=== PATIENT | male | born 1965 | race Caucasian/White ===

== ENCOUNTER 2023-04-13 19:12 | Emergency (ER) | payer OTHER, SELFPAY ==
[2023-04-13 19:22] VITALS: BP 157/89; PULSE 96; RESP 16; TEMP 36.9; O2SAT 95; BMI 24.4
[2023-04-13 19:56] LABS: Basophils Absolute Auto 0.02 K/uL (0.00-0.30); Basophils Percent Auto 0.3 % (0.0-3.0); Eosinophils Absolute Auto 0.01 K/uL (0.00-0.50); Eosinophils Percent Auto 0.2 % (0.0-7.0); Hemoglobin* 13.1 gm/dL (13.5-17.5); Immature Granulocytes Abs Auto 0.03 K/uL (0.00-0.30); Immature Granulocytes Pct Auto 0.5 %; Lymphocytes Absolute Auto 1.75 K/uL (0.90-2.90); Lymphocytes Percent Auto 27.3 % (20-44); Mean Corpuscular HGB Conc 34 gm/dL (32-36); Mean Corpuscular Hemoglobin 30 pg (26-34); Mean Corpuscular Volume 89 fL (80-100); Monocytes Percent Auto 21.9 % (0.0-11.0); Neutrophils Absolute Auto 3.19 K/uL (1.7-7.0); Neutrophils Percent Auto 49.8 % (42.0-72.0); Platelet Count* 384 K/uL (140-440); RDW Coefficient of Variation % 11.9 % (11.5-15.5); Red Blood Count 4.36 m/uL (4.30-5.90)
[2023-04-13 20:02] LABS: Lactate Sepsis w/Reflex* 0.9 mmol/L (0.5-1.9)
[2023-04-13 20:03] LABS: Slide Review Reflex No
[2023-04-13 20:12] LABS: Albumin* 3.8 g/dL (3.3-5.0); Chloride* 106 mmol/L (96-114)
[2023-04-13 20:13] LABS: Potassium* 3.7 mmol/L (3.6-5.1); Sodium* 138 mmol/L (135-149)
[2023-04-13 20:15] LABS: Creatinine* 0.9 mg/dL (0.5-1.5); Est. Creatinine Clearance* 91.25; Estimated Glomerular Filt Rate 98 ml/min
[2023-04-13 20:16] LABS: Alanine Aminotransferase* 23 U/L (4-50); Alkaline Phosphatase* 59 U/L (40-150); Anion Gap 5 mEq/L (7-15); Aspartate Amino Transferase* 25 U/L (12-35); Bilirubin Direct* 0.3 mg/dL (0.0-0.5); Bilirubin Total* 0.4 mg/dL (0.1-1.5); Blood Urea Nitrogen* 19 mg/dL (7-30); Calcium* 9.4 mg/dL (8.4-10.6); Carbon Dioxide* 27 mmol/L (20-32); Glucose* 112 mg/dL (60-115); Lipase* 63 U/L (23-300); Total Protein* 7.1 g/dL (6.0-8.3)
--- NOTE | 2023-04-13 20:16 | CT_ITS ---
Patient: CHAZ HAMILTON Facility:?[facility] Patient ID:?[id number] Site Patient ID:?[id number]. Site :?[id number] Study:?CT-Abdomen/Pelvis W/ 83CC ISOVUE 3 70-04/13/2023 8:47:29 PM Ordering Physician:BURAK Final Report: INDICATION: Right-sided abdominal pain. TECHNIQUE: CT abdomen and pelvis acquired with 83 mL Isovue 370 contrast. COMPARISON: None. FINDINGS: Lower chest: Mild bibasilar dependent atelectasis. No focal consolidation. Liver: No suspicious focal hepatic lesion. Gallbladder and bile ducts: Unremarkable. Pancreas: Unremarkable. Spleen: Unremarkable. Adrenal glands: Unremarkable. Kidneys: Kidneys enhance symmetrically, without hydronephrosis. Retroperitoneum: No lymphadenopathy. Bowel and mesentery: Bowel is not obstructed. No significant ascites, no pneumoperitoneum. Normal appendix. Bladder: Unremarkable for degree of distention. Reproductive organs: No significant prostatomegaly. Pelvic lymph nodes: No lymphadenopathy. Vessels: Few scattered vascular calcifications. Abdominal wall: No acute abdominal wall abnormality. Bones: Extensive multilevel degenerative changes of the spine. Bones are osteopenic. IMPRESSION: Normal appendix. No acute intra-abdominal abnormality identified. Please note that all CT scans at this facility use dose modulation, iterative reconstruction, and/or weight-based dosing when appropriate to reduce radiation dose to as low as reasonably achievable. Dictated by Jayme Lopez MD @ 04/13/2023 9:08:28 PM Signed by:?Jayme Lopez MD @04/13/2023 9:08:28 PM (Electronic Signature)
[2023-04-13 20:17] LABS: Ethanol* < 0.01 % (0.01-0.03)
[2023-04-13 20:19] LABS: C Reactive Protein* 2.1 mg/dL (0.5-1.0)
[2023-04-13] MEDS: 0.9 % SODIUM CHLORIDE 1000 ml 1,000 ML IV (20:27)
[2023-04-13 21:05] LABS: Appearance Urine Clear (Clear); Bilirubin Urine Negative (Negative); Blood Urine Negative (Negative); Color Urine Yellow (Yellow); Glucose Urine Negative (Negative); Ketones Urine Negative (Negative); Leukocyte Esterase Urine Negative (Negative); Nitrite Urine Negative (Negative); Protein Urine Negative (Negative); Specific Gravity Urine 1.015 (1.000-1.030); Urobilinogen Urine 0.2 (0.2-1.0)
[2023-04-13 21:18] LABS: RBC Urine 0-2 (0-2); WBC Urine 0-2 (0-5)
--- NOTE | 2023-04-13 22:34 | ED_ITS ---
HPI - General Adult General Chief complaint: Abdominal Pain Stated complaint: pain in abdomen/back Time Seen by Provider: 04/13/23 19:29 Source: patient and family Mode of arrival: ambulatory Limitations: no limitations History of Present Illness HPI narrative: Patient is a 57 year old male here with his daughter for evaluation of some abdominal pain which started yesterday. His daughter reports that she checked his temperature at home before he came in and it was 101, he did take Tylenol after that. He says he has had pain intermittently in the right upper quadrant radiating around to the back, kind of down the right lateral side of his abdomen as well. He has not had any nausea or vomiting, has had normal bowel movements denies constipation, diarrhea, black or bloody stools. He has not had any respi ratory symptoms. He has not had urinary symptoms. He denies a history of similar pain. Denies prior abdominal surgeries. He says the pain has come and gone since yesterday with no clear pattern, does not seem to be bothered by eating. Started a little bit before dinner yesterday, he had a burrito for dinner but that did not seem to make anything worse. Right now he does not have any significant pain. He does not smoke. Admits to sometimes heavy alcohol use, mostly on the weekends. He did drink all last week because he says he was on vacation. He denies a history of alcohol withdrawal or treatment, neither he nor his daughter considers alcohol problem. No other substance use. Related Data Home Medications Medication Instructions Recorded Confirmed amoxicillin 875 mg-potassium 1 tab PO Q12H 04/13/23 04/13/23 clavulanate 125 mg tablet prednisone 20 mg tablet 40 mg PO DAILY 04/13/23 04/13/23 Allergies Allergy/AdvReac Type Severity Reaction Status Date / Time No Known Drug Allergies Allergy Verified 04/13/23 20:51 Review of Systems Status of ROS: Reports: 10 or more systems reviewed and unremarkable except as noted in History and below Exam Narrative: Exam Narrative: Vital signs as noted above. In general, an alert, well-appearing patient. Head: Normocephalic, atraumatic. Eyes: Pupils are equal reactive. Extraocular movements are full. Conjunctivae are normal. ENT: Mucous membranes are moist. Throat is normal. Neck: Supple without lymphadenopathy. Heart: Regular rate and rhythm. No murmur or rub. Lungs: Clear bilaterally. No increased work of breathing, crackles or wheezes. Abdomen: Soft, nondistended. Bowel sounds are present. Intermittent tenderness in the right abdomen, not reproducible. Negative Lozoya's, no tenderness at McBurney's point. No rebound guarding or rigidity. No obvious rash. No CVA tenderness. Extremities: Well perfused. No edema. No calf tenderness. Pulses intact. Neurologic: Patient is alert and oriented to person and place. Speech is fluent. Face is symmetric. Moves all extremities equally. Affect: Normal. Skin: Warm and dry. Well perfused. Const: Vital Signs, click to edit/add: Vital Signs - 24 hr 04/13/23 19:22 Temperature 98.5 F Pulse Rate [Pulse Oximeter] 96 Respiratory Rate 16 Blood Pressure [Ri ght Upper Arm] 157/89 H Pulse Oximetry 95 Oxygen Delivery Me thod Room Air Documenting provider has reviewed patient's vital signs: yes Course Course ED Course: Labs were ordered, declined the need for anything for pain. I looked with the bedside ultrasound, did not see obvious gallstones, negative sonographic Lozoya's. Did not see hydronephrosis. Elected order CT scan given his age and reported fever at home although he is afebrile here. Labs are notable for normal white blood cell count, very minimal anemia with a hemoglobin of 13.1. Normal metabolic panel, normal lactate 0.9, normal LFTs, mildly elevated CRP at 2.1. Lipase was 63. Urinalysis was negative. Blood alcohol was less than 0.[address] scan by my review showed a normal appendix, no obvious gallstones, no inflammatory changes around the bowel. Read by Radiology as normal, normal gallbladder, normal appendix, no hydro nephrosis or kidney stone. At this time, etiology of his pain is unclear although with reassuring labs aside from a very minimally elevated CRP and a benign abdominal exam I doubt acute surgical cause. Did ask him to keep an eye out for rash as with this intermittent somewhat unusual pain early shingles would be a possibility. Ibuprofen or Tylenol as needed, asked him to abstain from alcohol until symptoms are improved. If not improving over the weekend, see primary care next week for recheck. Return at any time for acute worsening, severe uncontrolled pain, fever, vomiting or other worsening. Vital Signs Vital signs: Initial Vital Signs Temperature 98.5 F 04/13/23 19:22 Temperature Source Temporal Artery Scan 04/13/23 19:22 Pulse Rate 96 04/13/23 19:22 Respiratory Rate 16 04/13/23 19:22 Blood Pressure 157/89 H 04/13/23 19:22 Blood Pressure Mean 111 H 04/13/23 19:22 Blood Pressure Position Sitting 04/13/23 19:22 Pulse Oximetry 95 04/13/23 19:22 Oxygen Delivery Method Room Air 04/13/23 19:22 Vital Signs Temperature 98.5 F 04/13/23 19:22 Pulse Rate 96 04/13/23 19:22 Respiratory Rate 16 04/13/23 19:22 Blood Pressure 157/89 H 04/13/23 19:22 Pulse Oximetry 95 04/13/23 19:22 Oxygen Delivery Method Room Air 04/13/23 19:22 Temperature 98.5 F 04/13/23 19:22 Pulse Rate 96 04/13/23 19:22 Respiratory Rate 16 04/13/23 19:22 Blood Pressure 157/89 H 04/13/23 19:22 Pulse Oximetry 95 04/13/23 19:22 Oxygen Delivery Method Room Air 04/13/23 19:22 Medications Administered Medications: Discontinued Medications Generic Name Dose Route Start Last Admin Trade Name Freq PRN Reason Stop Dose Admin Sodium Chloride 1,000 mls @ 1,000 mls/hr 04/13/23 20:30 04/13/23 20:27 0.9 % Sodium Chloride 1000 Ml IV 04/13/23 21:29 1,000 mls/hr .[facility] Administration Medical Decision Making Lab Data Labs: Lab Results 04/13/23 04/13/23 Range/Units 19:49 20:00 WBC 6.40 (4.50-11.00) K/uL RBC 4.36 (4.30-5.90) m/uL Hgb 13.1 L (13.5-17.5) gm/dL Hct 39.0 (37.0-53.0) % MCV 89 (80-100) fL MCH 30 (26-34) pg MCHC 34 (32-36) gm/dL RDW Coeff of Tricia 11.9 (11.5-15.5) % Plt Count 384 (140-440) K/uL Neut % (Auto) 49.8 (42.0-72.0) % Lymph % (Auto) 27.3 (20-44) % [place] % (Auto) 21.9 H (0.0-11.0) % Eos % (Auto) 0.2 (0.0-7.0) % Baso % (Auto) 0.3 (0.0-3.0) % Neut # (Auto) 3.19 (1.7-7.0) K/uL Lymph # (Auto) 1.75 (0.90-2.90) K/uL Gaston # (Auto) 1.40 H (0.00-0.90) K/UL Eos # (Auto) 0.01 (0.00-0.50) K/uL Baso # (Auto) 0.02 (0.00-0.30) K/uL Abs Immat Gran (auto) 0.03 (0.00-0.30) K/uL Imm/Tot Granulo (auto) 0.5 % Sodium 138 (135-149) mmol/L Potassium 3.7 (3.6-5.1) mmol/L Chloride 106 (96-114) mmol/L Carbon Dioxide 27 (20-32) mmol/L Anion Gap 5 L (7-15) mEq/L BUN 19 (7-30) mg/dL Creatinine 0.9 (0.5-1.5) mg/dL Estimated Creat Clear 91.25 Estimated GFR 98 ml/min Glucose 112 (60-115) mg/dL Lactate 0.9 (0.5-1.9) mmol/L Calcium 9.4 (8.4-10.6) mg/dL Total Bilirubin 0.4 (0.1-1.5) mg/dL Direct Bilirubin 0.3 (0.0-0.5) mg/dL AST 25 (12-35) U/L ALT 23 (4-50) U/L Alkaline Phosphatase 59 (40-150) U/L C-Reactive Protein 2.1 H (0.5-1.0) mg/dL Total Protein 7.1 (6.0-8.3) g/dL Albumin 3.8 (3.3-5.0) g/dL Lipase 63 (23-300) U/L Urine Color Yellow (Yellow) Urine Appearance Clear (Clear) Urine pH 7.0 (5.0-8.5) Ur Specific [place] 1.015 (1.000-1.030) Urine Protein Negative (Negative) Urine Glucose (UA) Negative (Negative) Urine Ketones Negative (Negative) Urine Blood Negative (Negative) Urine Nitrite Negative (Negative) Urine Bilirubin Negative (Negative) Urine Urobilinogen 0.2 (0.2-1.0) Ur Leukocyte Esterase Negative (Negative) Urine RBC 0-2 (0-2) Urine WBC 0-2 (0-5) Ur Squamous Epith Cells None (None-Few) Urine Bacteria None (None) Ethyl Alcohol < 0.01 L (0.01-0.03) % Discharge Plan Discharge Clinical Impression: Abdominal pain Patient Disposition: Home, Self-Care Condition: Stable Instructions: Abdominal Pain (ED) Additional Instructions: For severe uncontrolled pain, vomiting, high fevers, black or bloody stools or other acute worsening return to the emergency department. Otherwise, he have persistent pain would advise follow-up with your primary doctor next week. CT scan and labs tonight do not reveal an obvious cause for your symptoms. Watch for rash over the right side of the abdomen which could represent shingles. Ibuprofen or Tylenol if needed for pain. Recommend avoidance of alcohol until symptoms resolve. Prescriptions: No Action prednisone 20 mg tablet 40 mg PO DAILY amoxicillin-pot clavulanate 875-125 mg tablet 1 tab PO Q12H Follow Up/Referrals: Michael Senior MD [Primary Care Provider] - Stand Alone Forms: [employer] Info Instructions
== END 2023-04-13 21:33 | disposition home or self-care (01) ==
PROVIDERS: Emergency Provider Emergency Medicine; PCP Family Medicine
DX: R10.9 Unspecified abdominal pain (principal)
CPT/HCPCS: 36415; 74177; 80048; 80076; 81001; 82077; 83605; 83690; 85025; 86140; 99284; 99285; J7030; Q9967